=== PATIENT | male | born 1975 | race Caucasian/White ===

== ENCOUNTER 2017-08-20 05:42 | Emergency (ER) | payer BC, SELFPAY ==
[2017-08-20 05:48] VITALS: BP 147/91; PULSE 75; RESP 20; TEMP 36.6; O2SAT 98; BMI 31.8
--- NOTE | 2017-08-20 05:57 | CT_ITS ---
CT abdomen pelvis wo con COMPARISON: CT scan abdomen pelvis 08/30/2012 HISTORY: Left upper quadrant pain, nausea and vomiting TECHNIQUE: Multiaxial scans obtained from hemidiaphragms to the pelvic floor and were performed without IV or oral contrast. Sagittal and coronal reformats were evaluated as well. FINDINGS: The lower lung ye are clear. Cardiac size is normal. The liver spleen stomach and pancreas appear normal. Stomach is moderately distended with ingested food particles and the gallbladder is markedly contracted but appears to show multiple tiny calcified gallstones. The adrenal glands are normal. The kidneys are normal size and in no calculi and is no obstructive uropathy. Small bowel appears normal. The appendix is normal and retrocecal in location. There is moderate scattered stool in the ascending and transverse colon. The urinary bladder and prostate appear normal. IMPRESSION: 1. Markedly contracted gallbladder making evaluation difficult but I suspect small calcified gallstones, possibly follow-up ultrasound right upper quadrant would be helpful 2. Otherwise no acute abdominal or pelvic pathology identified, I basically agree the [facility] report but do not feel that there is hepatosplenomegaly
--- NOTE | 2017-08-20 05:57 | XR_ITS ---
XR chest portable COMPARISON: PA and lateral chest 07/06/2016 HISTORY: Chest pain TECHNIQUE: Portable upright chest FINDINGS: This a fairly good inspiration and the lung ye are clear of infiltrate. Apparently is been previous CABG with sternal wire sutures noted. Also there likely has been previous atrial appendage clamping. There is mild generalized cardio megaly with is no evidence of failure and is no pleural fluid. IMPRESSION: Stable mild cardio megaly, no acute chest pathology noted
[2017-08-20 06:08] LABS: Microscopic, Urine URINE MICROSCOPIC (MICROSCOPIC)
[2017-08-20 06:09] LABS: Appearance,Urine CLEAR (Clear); Bilirubin,Urine Negative (Negative); Blood, Urine Negative (Negative); Color,Urine YELLOW (Yellow); Glucose,Urine (UA) 3+ (Negative); Ketones,Urine Negative (Negative); Leukocyte Esterase,Urine Negative (Negative); Nitrate,Urine Negative (Negative); Protein,Urine 2+ (Negative); Specific Gravity, Urine >= 1.030 (1.005-1.030); Urobilinogen,Urine 0.2 EU/dl (0.2)
[2017-08-20 06:14] LABS: Basophils # 0.1 K/mm3 (0-0.2); Basophils % 0.7 % (0.1-2.0); Eosinophils # 0.2 K/mm3 (0.0-0.4); Eosinophils % 2.4 % (0.1-12.0); Hematocrit 51.1 % (42.0-52.0); Hemoglobin 17.5 g/dL (14.1-18.0); Lymphocytes # 2.1 K/mm3 (0.7-4.5); Lymphocytes % 21.1 K/mm3 (10-50); Mean Corpuscular HGB Conc 34.2 g/dL (31.8-35.4); Mean Corpuscular Hemoglobin 30.1 pg (27.0-31.2); Mean Platelet Volume 8.9 fl (7.4-10.4); Monocytes # 0.6 K/mm3 (0.1-1.0); Monocytes % 5.6 % (1.7-9.3); Neutrophils # 6.9 K/mm3 (1.8-7.8); Neutrophils % 70.2 % (37.0-80.0); Platelet Count 220 K/mm3 (142-424); Red Blood Count 5.81 M/mm3 (4.60-6.20); Red Cell Distribution Width 13.2 % (11.5-17.5); White Blood Count 9.8 K/mm3 (4.8-10.8)
[2017-08-20 06:29] LABS: Bacteria,Urine Trace /lpf; Hyaline Casts,Urine Occasional #/lpf (0); Mucus,Urine 1+ /lpf; Squamous Epithelial Cell,Urine Occasional #/hpf (0-5)
--- NOTE | 2017-08-20 06:33 | HMH.EDNVD ---
ED Disposition Clinical Impression: Gastroenteritis Chest pain Qualifiers: Chest pain type: other chest pain Qualified Code(s): R07.89 - Other chest pain Disposition: Home, Self-Care Condition on Discharge: Good Instructions: DI for Viral Gastroenteritis -- Adult, DI for Atypical Chest Pain Additional Instructions: Please drink plenty of fluids, take medications prescribed for nausea (all), may take [id number] Imodium as needed for diarrhea, follow-up with Dr. 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 Prescriptions: Ondansetron [Zofran 4mg ODT] 4 mg PO QIDP PRN #28 tab.rapdis PRN Reason: Nausea Referrals: Letitia Herr [Referring] - Forms: Work/School Release Time of Disposition: 09:38 - Critical Care Critical Care Time: No Attestation: On 08/20/17, the high probability of a clinically significant, sudden or life threatening deterioration of the following system(s) required my full and direct attention, intervention and personal management. The time I documented below is in addition to time spent performing reported procedures but includes the following listed in this critical care notation. Medical Decision Making - Medical Records Medical records reviewed: Yes: I reviewed the patient's medical records. - Markie Inquiry Pt receiving controlled substance: No Vital Signs: 08/20/17 05:48 08/20/17 06:52 08/20/17 10:01 Temperature 97.9 F 98.0 F Temperature Source Oral Oral Pulse Rate 74 Pulse Rate [Right Radial] 75 67 Respiratory Rate 20 14 20 Blood Pressure 110/63 Blood Pressure [Right Arm] 147/91 131/79 Blood Pressure Mean [Right Arm] 109 96 Blood Pressure Source Automatic Cuff Blood Pressure Source [Right Arm] Automatic Cuff Blood Pressure Position Sitting Blood Pressure Position [Right Arm] Supine 02 Sat by Pulse Oximetry 98 96 Oxygen Delivery Method Room Air Room Air - Lab Data Lab results reviewed: Yes: I reviewed the patient's lab results. Lab Results 08/20/17 05:45: Urine Color Yellow, Urine Appearance Clear, Urine pH 6.0, Ur Specific [place] >= 1.030, Urine Protein 2+, Urine Glucose (UA) 3+, Urine Ketones Negative, Urine Blood Negative, Urine Nitrate Negative, Urine Bilirubin Negative, Urine Urobilinogen 0.2, Ur Leukocyte Esterase Negative, Urine RBC 3-5, Urine WBC 3-5, Ur Squamous Epith Cells Occasional, Urine Bacteria Trace, Hyaline Casts Occasional, Urine Mucus 1+ 08/20/17 06:00: WBC 9.8, RBC 5.81, Hgb 17.5, Hct 51.1, MCV 88.0, MCH 30.1, MCHC 34.2, RDW 13.2, Plt Count 220, MPV 8.9, Neut % (Auto) 70.2, Lymph % (Auto) 21.1, [place] % (Auto) 5.6, Eos % (Auto) 2.4, Baso % (Auto) 0.7, Neut # (Auto) 6.9, Lymph # (Auto) 2.1, [place] # (Auto) 0.6, Eos # (Auto) 0.2, Baso # (Auto) 0.1 08/20/17 06:00: Sodium 137, Potassium 5.3 H, Chloride 101, Carbon Dioxide 29, Anion Gap 12.3, BUN 17, Creatinine 1.03, Estimated Creat Clear 139, Estimated GFR 79, Est GFR ( Amer) 95, Glucose 280 H, Calcium 9.3, Total Bilirubin 0.6, AST 33, ALT 83 H, Alkaline Phosphatase 107, Total Creatine Kinase 49, CK-MB (CK-2) 1.3, CK-MB (CK-2) Rel Index 2.7, Troponin I < 0.02, Total Protein 7.5, Albumin 4.0, Globulin 3.5 H, Albumin/Globulin Ratio 1.1, Amylase 99 08/20/17 06:00: Lipase 514 H 08/20/17 07:50: Troponin I < 0.02 Result diagrams: 08/20/17 06:00 08/20/17 06:00 Orders (Tests/Meds): ED MEDICATIONS Discontinued Medications Generic Name Dose Route Start Last Admin Trade Name Wild PRN Reason Stop Dose Admin Aspirin 324 mg 08/20/17 05:58 08/20/17 06:03 Aspirin 81mg Chewable Tablet PO 08/20/17 05:59 324 mg ONCE ONE Administration Diphenhydramine HCl 25 mg 08/20/17 07:58 08/20/17 08:03 Benadryl 25mg Capsule PO 08/20/17 07:59 25 mg ONCE ONE Administration Diphenoxylate HCl/Atropine 5 mg 08/20/17 06:34 08/20/17 06:57 Lomotil 2.5mg Tablet PO 08/20/17 06:35 Not Given ONCE ONE Sod
[2017-08-20 06:40] LABS: Alanine Aminotransferase 83 U/L (12-78); Albumin/Globulin Ratio 1.1 (1.1-1.8); Alkaline Phosphatase 107 U/L (46-116); Amylase 99 U/L (25-125); Anion Gap 12.3 mEq/L (5-15); Aspartate Amino Transferase 33 U/L (15-37); Bilirubin,Total 0.6 mg/dL (0.2-1.0); Blood Urea Nitrogen 17 mg/dL (7-18); CKMB Relative Index 2.7 U/L (0-4.0); Calcium 9.3 mg/dL (8.5-10.1); Carbon Dioxide 29 mmol/L (21.0-32.0); Chloride 101 mmol/L (98-107); Creatine Kinase 49 U/L (39-308); Creatine Kinase MB 1.3 mg/ml (0.0-3.6); Creatinine Clearance Estimated 139 mL/min (0-300); Creatinine,Serum 1.03 mg/dL (0.70-1.30); Estimated Glomerular Filt Rate 79 ml/min (>60); GFR (African American) 95 ML/MIN (>60); Globulin 3.5 gm/dl (1.3-3.2); Glucose 280 mg/dL (74-106); Potassium 5.3 mmoL/L (3.5-5.1); Sodium 137 mmol/L (136-145); Total Protein,Serum 7.5 gm/dL (6.4-8.2); Troponin I < 0.02 ng/ml (0.00-0.06)
[2017-08-20 06:42] LABS: Lipase 514 u/L (73-393)
[2017-08-20 06:52] VITALS: BP 131/79; PULSE 67; RESP 14; O2SAT 96
[2017-08-20 08:16] LABS: Troponin I < 0.02 ng/ml (0.00-0.06)
[2017-08-20 10:01] VITALS: BP 110/63; PULSE 74; RESP 20; TEMP 36.7; O2SAT 98
== END 2017-08-20 10:03 | disposition home or self-care (01) ==
PROVIDERS: Emergency Provider Emergency Medicine; Family Provider Internal Medicine Adolescent Medicine
DX: K52.9 Noninfective gastroenteritis and colitis, unspecified (principal); R07.89 Other chest pain; Z79.82 Long term (current) use of aspirin; E11.9 Type 2 diabetes mellitus without complications; Z87.891 Personal history of nicotine dependence; Z79.84 Long term (current) use of oral hypoglycemic drugs
CPT/HCPCS: 36415; 71045; 74176; 80053; 81001; 82150; 82550; 82553; 83690; 84484; 85025; 93005; 96365; 96366; 96375; 96376; 99283; J2405

== ENCOUNTER → 2018-01-22 14:00 | Outpatient (CLI) | payer BC, SELFPAY ==
--- NOTE | 2018-01-22 14:04 | CI_ITS ---
Cerebrovascular Exam Indications: TIA 434.91. Sudden vision loss 368.11. IMPRESSIONS 1. The bilateral vertebral arteries are patent with normal antegrade flow. 2. Study suggests less than 20% stenosis involving the right internal carotid artery and the left internal carotid artery. Carotid duplex study. Complete study and Doppler flow study including spectral analysis, color and kelsey scale imaging. Height: Height: 182.9cm. Height: 72in. Weight: Weight: 104.3kg. Weight: 229.5lb. Body mass index: BMI: 31.2kg/m^2. Body surface area: BSA: 2.33m^2. Location: Vascular laboratory. Patient status: Outpatient. Tables: Arterial flow: + +--------+--------+ Location V sys V ed + +--------+--------+ Right CCA - proximal 88cm/s 15.7cm/s + +--------+--------+ Right CCA - distal 66.8cm/s 19.6cm/s + +--------+--------+ Right ECA 112cm/s -------- + +--------+--------+ Right ICA - proximal 52.4cm/s 24.8cm/s + +--------+--------+ Right ICA - mid 65.1cm/s 27cm/s + +--------+--------+ Right ICA - distal 62.3cm/s 31.4cm/s + +--------+--------+ Right vertebral 27.5cm/s -------- + +--------+--------+ Left CCA - proximal 80.5cm/s 18.7cm/s + +--------+--------+ Left CCA - distal 88.8cm/s 22.1cm/s + +--------+--------+ Left ECA 77.7cm/s -------- + +--------+--------+ Left ICA - proximal 44.3cm/s 18.2cm/s + +--------+--------+ Left ICA - mid 50.6cm/s 19.9cm/s + +--------+--------+ Left ICA - distal 57.6cm/s 26.2cm/s + +--------+--------+ Left vertebral 35.3cm/s -------- + +--------+--------+ Velocity ratios: + + + + + + Right, V sys Right, V ed Left, V sys Left, V ed + + + + + + Max ICA/dist CCA 0.97 1.6 0.65 1.19 + + + + + + (Report amended ) Electronically signed by: Chu Vaca [id number]
--- NOTE | 2018-01-22 14:37 | MR_ITS ---
MR head/brain wo con HISTORY: Digital changes, blurriness of the left eye ITS.REASON: TIA ORDERING PHYSICIAN: Mayank Brooks MD PATIENT AGE: 42 years Comparison: None TECHNIQUE: Standard multiplanar multiecho sequences are performed without contrast. FINDINGS: No midline shift, mass effect, intracranial hemorrhage, or hydrocephalus. No evidence of acute infarction. There are a few T2 white matter hyperintensities noted one in the right rizvi radiata anteriorly and at least 4 in the subcortical region of the right parietal lobe. These do not demonstrate restricted diffusion. The cerebellopontine angles, cerebellum, and brainstem are unremarkable. Hippocampal gyri are unremarkable in the temporal horns are symmetric. The upper cervical cord has an unremarkable appearance. No mastoid effusion or sinus air-fluid level. The pituitary and optic chiasm are unremarkable. There is some increased T2 signal in the deep white matter of the occipital lobes bilaterally in the immediate periventricular region. There is also a T2 white matter hyperintensity in the left subinsular region. IMPRESSION: 1. Scattered T2 white matter hyperintensities as described above. These are nonspecific. Differential diagnosis would include ischemic gliotic change from microvascular disease, migraine headache, and demyelinating process/multiple sclerosis. The right rizvi radiata hyperintensity is oriented perpendicular to the plane of the lateral ventricles which may indicate developing Jha finger which may be seen in multiple sclerosis. There is also some white matter hyperintensity in the occipital horns which may be seen with MS as well. Neurology consult may be in order. 2. No evidence of acute infarction or other acute anomalies
--- NOTE | 2018-01-22 14:38 | MR_ITS ---
MR angio head wo con HISTORY: Visual disturbance, visual changes, blurred vision ITS.REASON: TIA ORDERING PHYSICIAN: Mayank Brooks MD PATIENT AGE: 42 years Comparison: None TECHNIQUE: 3-D [id number] images obtained without contrast. FINDINGS: No aneurysm, AVM, intracranial occlusive process, or other significant anomalies. Single shot MRV is unremarkable. There is persistent origin of the right posterior cerebral artery as a normal variant IMPRESSION: Negative MRA of the brain
== END ==
PROVIDERS: Family Provider Internal Medicine Adolescent Medicine; PCP Internal Medicine Adolescent Medicine; Visit Provider Internal Medicine Adolescent Medicine
DX: G45.9 Transient cerebral ischemic attack, unspecified (principal)
CPT/HCPCS: 70544; 70551; 93880

== ENCOUNTER → 2019-10-04 11:41 | Outpatient (CLI) | payer BC, SELFPAY ==
[2019-10-04 15:15] LABS: Hemoglobin A1C 6.6 % (4.0-6.0)
[2019-10-04 17:39] LABS: Chloride 101 mmol/L (98-107)
[2019-10-04 17:40] LABS: Potassium 5.1 mmoL/L (3.5-5.1); Sodium 140 mmol/L (136-145)
[2019-10-04 17:42] LABS: Alanine Aminotransferase 42 U/L (12-78); Albumin Level 4.8 g/dl (3.5-5.0); Albumin/Globulin Ratio 1.9 (1.1-1.8); Alkaline Phosphatase 64 U/L (38-126); Anion Gap 17.1 mEq/L (5-15); Aspartate Amino Transferase 34 U/L (17-59); Bilirubin,Total 1.5 mg/dl (0.2-1.3); Blood Urea Nitrogen 18 mg/dl (9-20); Carbon Dioxide 27 mmol/L (22.0-30.0); Estimated Glomerular Filt Rate 104 ml/min (>60); GFR (African American) 126 ML/MIN (>60); Globulin 2.5 g/dL (1.3-3.2); Total Protein,Serum 7.3 g/dl (6.3-8.2)
[2019-10-04 17:43] LABS: Calcium 10.3 mg/dl (8.4-10.2); Chol/HDL Ratio 3.2 (1-3.5); Cholesterol 130 mg/dl (140-200); Glucose 131 mg/dl (74-100); HDL Cholesterol 41 mg/dl (40-60); Triglycerides 214 mg/dl (30-150); VLDL Cholesterol 43 mg/dL (0-40)
[2019-10-04 17:54] LABS: Direct LDL Cholesterol 81.77 mg/dL (100-129)
== END ==
PROVIDERS: Visit Provider Internal Medicine Adolescent Medicine
DX: E11.9 Type 2 diabetes mellitus without complications (principal)
CPT/HCPCS: 36415; 80053; 80061; 83036

== ENCOUNTER 2019-11-10 09:00 | Outpatient (RCR) | payer BC, SELFPAY | END 2019-11-20 15:30 | disposition home or self-care (01) | LOC: PT.CARL 09:00 | PROVIDERS: PCP Internal Medicine Adolescent Medicine; Visit Provider Hospitalist | DX: M54.5 Low back pain (principal); M54.17 Radiculopathy, lumbosacral region; M48.061 Spinal stenosis, lumbar region without neurogenic claudication | CPT/HCPCS: 97010; 97012; 97014; 97110; 97140; 97163; G0283 ==

== ENCOUNTER → 2020-01-13 15:48 | Outpatient (CLI) | payer BC, SELFPAY ==
[2020-01-13 17:09] LABS: Hemoglobin A1C 7.7 % (4.0-6.0)
[2020-01-13 17:24] LABS: Alanine Aminotransferase 59 U/L (12-78); Albumin Level 4.9 g/dl (3.5-5.0); Albumin/Globulin Ratio 1.8 (1.1-1.8); Alkaline Phosphatase 107 U/L (38-126); Aspartate Amino Transferase 46 U/L (17-59); Bilirubin,Total 1.2 mg/dl (0.2-1.3); Blood Urea Nitrogen 16 mg/dl (9-20); Calcium 10.2 mg/dl (8.4-10.2); Carbon Dioxide 28 mmol/L (22.0-30.0); Chloride 99 mmol/L (98-107); Estimated Glomerular Filt Rate 121 ml/min (>60); GFR (African American) 147 ML/MIN (>60); Globulin 2.8 g/dL (1.3-3.2); Glucose 144 mg/dl (74-100); Magnesium 1.9 mg/dl (1.6-2.3); Sodium 141 mmol/L (136-145); Total Protein,Serum 7.7 g/dl (6.3-8.2)
== END ==
PROVIDERS: Visit Provider Internal Medicine Adolescent Medicine
DX: E11.9 Type 2 diabetes mellitus without complications (principal); E61.2 Magnesium deficiency; I10 Essential (primary) hypertension; Z79.84 Long term (current) use of oral hypoglycemic drugs
CPT/HCPCS: 36415; 80053; 83036; 83735

== ENCOUNTER 2020-07-19 09:20 | Emergency (ER) | payer BC, SELFPAY ==
[2020-07-19 09:21] VITALS: BP 152/111; PULSE 132; RESP 20; TEMP 37.3; O2SAT 95; BMI 31.1
--- NOTE | 2020-07-19 09:23 | HMH.EDGENADL ---
ED Disposition Clinical Impression: COVID-19 Disposition: Home, Self-Care Condition on Discharge: Good Referrals: PCP,No [Primary Care Provider] - 3 days Time of Disposition: 14:19 - Critical Care Critical Care Time: No Attestation: On , the high probability of a clinically significant, sudden or life threatening deterioration of the following system(s) required my full and direct attention, intervention and personal management. The time I documented below is in addition to time spent performing reported procedures but includes the following listed in this critical care notation. Medical Decision Making - Medical Records Medical records reviewed: Yes: I reviewed the patient's medical records. - Markie Inquiry Pt receiving controlled substance: No Vital Signs: 07/19/20 09:21 07/19/20 09:51 07/19/20 11:21 Temperature 99.1 F Temperature Source Oral Pulse Rate [Left Radial] 132 H 123 H 116 H Respiratory Rate 20 Blood Pressure [Right Arm] 152/111 H 141/95 H 151/98 H Blood Pressure Mean [Right Arm] 124 110 115 Blood Pressure Source [Right Arm] Automatic Cuff Automatic Cuff Automatic Cuff Blood Pressure Position [Right Arm] Sitting Supine Supine 02 Sat by Pulse Oximetry 95 90 L 98 Oxygen Delivery Method Room Air Room Air Room Air 07/19/20 12:30 07/19/20 13:30 Temperature Temperature Source Pulse Rate [Left Radial] 109 H 111 H Respiratory Rate 18 Blood Pressure [Right Arm] 136/96 H 127/92 H Blood Pressure Mean [Right Arm] 109 103 Blood Pressure Source [Right Arm] Blood Pressure Position [Right Arm] Sitting Sitting 02 Sat by Pulse Oximetry 94 L 93 L Oxygen Delivery Method Room Air Room Air - Lab Data Lab results reviewed: Yes: I reviewed the patient's lab results. Lab Results 07/19/20 09:28: WBC 4.3 L, RBC 6.35 H, Hgb 19.1 H*, Hct 56.0 H, MCV 88.1, MCH 30.1, MCHC 34.1, RDW 13.6, Plt Count 130 L, MPV 9.1, Neut % (Auto) 58.7, Lymph % (Auto) 26.4, [place] % (Auto) 10.3 H, Eos % (Auto) 0.4, Baso % (Auto) 4.1 H, Neut # (Auto) 2.5, Lymph # (Auto) 1.1, [place] # (Auto) 0.4, Eos # (Auto) 0.0, Baso # (Auto) 0.2 07/19/20 09:28: Sodium 138, Potassium 4.0, Chloride 104, Carbon Dioxide 25, Anion Gap 13.0, BUN 15, Creatinine 0.80, Estimated Creat Clear 170, Estimated GFR 104, Est GFR ( Amer) 126, Glucose 203 H, Calcium 9.9, Total Bilirubin 1.2, AST 56, ALT 73, Alkaline Phosphatase 80, Total Protein 8.4 H, Albumin 5.0, Globulin 3.4 H, Albumin/Globulin Ratio 1.5 07/19/20 09:28: Influenza Type A Ag Negative, Influenza Type B Ag Negative 07/19/20 09:28: Group A Strep Rapid Negative Result diagrams: 07/19/20 09:28 07/19/20 09:28 Orders (Tests/Meds): ED MEDICATIONS Discontinued Medications Generic Name Dose Route Start Last Admin Trade Name Freq PRN Reason Stop Dose Admin Acetaminophen 1,000 mg 07/19/20 11:31 07/19/20 11:34 Acetaminophen 500mg Tab PO 07/19/20 11:32 1,000 mg ONCE ONE Administration Sodium Chloride 1,000 mls @ 999 mls/hr 07/19/20 09:30 07/19/20 09:50 Sod Chlor 0.9% 1000ml Bag IV 07/19/20 10:30 999 mls/hr .Q1H1M MIGUEL Administration Sodium Chloride 1,000 mls @ 999 mls/hr 07/19/20 11:15 07/19/20 11:11 Sod Chlor 0.9% 1000ml Bag IV 07/19/20 12:15 999 mls/hr .Q1H1M MIGUEL Administration Ibuprofen 600 mg 07/19/20 11:31 07/19/20 11:34 Ibuprofen 600 Mg Tablet PO 07/19/20 11:32 600 mg ONCE ONE Administration Iopamidol 75 ml 07/19/20 13:06 07/19/20 13:07 Iopamidol-370 (76%);100ml Bottle IV 07/19/20 13:07 75 ml ONCE ONE Administration Ondansetron HCl 4 mg 07/19/20 10:30 07/19/20 10:38 Ondansetron 4mg/2ml Vial IV 07/19/20 10:31 4 mg ONCE ONE Administration Sodium Chloride 10 ml 07/19/20 13:06 07/19/20 13:07 Sodium Chloride 0.9% 10ml Syr (Rad Only) IV 07/19/20 13:07 10 ml ONCE ONE Administration Sodium Chloride 50 ml 07/19/20 13:06 0.9 % Sodium Chloride 50 Ml Vial IV 07/19/20 13:07 ONCE ONE ORDERS
--- NOTE | 2020-07-19 09:26 | XR_ITS ---
PROCEDURE: XR CHEST PORTABLE CLINICAL HISTORY: soa Shortness of air, full PP, are COMPARISON: CT CTAC CTA-CHEST from 01/10/2016 CR CXR CHEST(2 VIEWS-NOT PORTABLE) from 07/24/2016 CR CXR1VP XR chest portable from 08/20/2017 FINDINGS: Patient had a prior median sternotomy a atrial appendix clip and loop recorder placement. Additional cerclage wires and additional hardware across the sternum. There are low lung volumes. There is crowding at the vascular markings secondary to low lung volumes. Cardiomegaly is redemonstrated. No visible pleural effusions. There are degenerative changes in the skeleton. IMPRESSION: . Decreased inspiration, low lung volumes, postsurgical findings. Dictated by: Lynn Stoddard 07/19/2020 11:11 Lynn Stoddard in [facility] 07/19/2020 11:11
[2020-07-19 09:42] LABS: Basophils # 0.2 K/mm3 (0-0.2); Basophils % 4.1 % (0.1-2.0); Eosinophils % 0.4 % (0.1-12.0); Lymphocytes # 1.1 K/mm3 (0.7-4.5); Lymphocytes % 26.4 % (10-50); Mean Corpuscular HGB Conc 34.1 g/dL (31.8-35.4); Mean Corpuscular Hemoglobin 30.1 pg (27.0-31.2); Mean Corpuscular Volume 88.1 fl (80-94); Mean Platelet Volume 9.1 fl (7.4-10.4); Monocytes # 0.4 K/mm3 (0.1-1.0); Monocytes % 10.3 % (1.7-9.3); Neutrophils # 2.5 K/mm3 (1.8-7.8); Neutrophils % 58.7 % (37.0-80.0); Platelet Count 130 K/mm3 (142-424); Red Blood Count 6.35 M/mm3 (4.60-6.20); Red Cell Distribution Width 13.6 % (11.5-17.5); White Blood Count 4.3 K/mm3 (4.8-10.8)
[2020-07-19 09:47] LABS: Hemoglobin 19.1 g/dL (14.1-18.0)
[2020-07-19 09:49] LABS: Chloride 104 mmol/L (98-107); Sodium 138 mmol/L (136-145)
[2020-07-19 09:51] VITALS: BP 141/95; PULSE 123; O2SAT 90
[2020-07-19 09:51] LABS: Alanine Aminotransferase 73 U/L (12-78); Aspartate Amino Transferase 56 U/L (17-59); Blood Urea Nitrogen 15 mg/dl (9-20); Creatinine Clearance Estimated 170 mL/min (50-200); Estimated Glomerular Filt Rate 104 ml/min (>60); GFR (African American) 126 ML/MIN (>60)
[2020-07-19 09:52] LABS: Albumin/Globulin Ratio 1.5 (1.1-1.8); Alkaline Phosphatase 80 U/L (38-126); Bilirubin,Total 1.2 mg/dl (0.2-1.3); Calcium 9.9 mg/dl (8.4-10.2); Carbon Dioxide 25 mmol/L (22.0-30.0); Globulin 3.4 g/dL (1.3-3.2); Glucose 203 mg/dl (74-100); Total Protein,Serum 8.4 g/dl (6.3-8.2)
[2020-07-19 10:15] LABS: Strep Scrn Group A (Rapid) Negative (Negative)
[2020-07-19 11:21] VITALS: BP 151/98; PULSE 116; O2SAT 98
--- NOTE | 2020-07-19 12:07 | CT_ITS ---
PROCEDURE: CT ANGIO CHEST CLINCIAL INDICATION: tachycardia, pain COMPARISON: CT CTAC CTA-CHEST from 01/10/2016 CR XR CHEST PORTABLE from 07/19/2020 TECHNIQUE: IV Contrast: 70ML Isovue 370 Axial images obtained with sagittal and coronal reformats. All CT scans at the facility use one or more dose reduction, viz: automated exposure control, ma/kV adjustment per patient size (including targeted exams where dose is matched to indication, i.e. head), or iterative reconstruction technique. FINDINGS: HEART AND MEDIASTINAL STRUCTURES: Patient the and CABG procedure. Patient has an implanted loop recorder and additional surgical hardware possibly an atrial appendage closure device. There is severe atherosclerotic calcification throughout the coronary arteries. There are multiple calcified mediastinal and hilar lymph nodes. Mediastinal structures are otherwise normal. There are no pleural effusions. LUNGS AND PLEURAL SPACES: There are multiple small patchy ground-glass infiltrates throughout the lungs right greater than left consistent with pneumonia, possibility of COVID pneumonia, correlate clinically. Vasculature: There is no pulmonary embolus. There is no aortic dissection. BONY STRUCTURES: No acute bony abnormalities apparent. UPPER ABDOMEN: Unremarkable. ADDITIONAL FINDINGS: No other significant abnormalities. IMPRESSION: Multiple small patchy ground-glass densities assisted with infiltrate, including COVID Pneumonia, correlate clinically. Dictated by: Lynn Stoddard 07/19/2020 14:07 Lynn Stoddard in [facility] 07/19/2020 14:07
[2020-07-19 12:30] VITALS: BP 136/96; PULSE 109; O2SAT 94
--- NOTE | 2020-07-19 12:55 | PC.NURSE ---
pt going to ct
[2020-07-19 13:30] VITALS: BP 127/92; PULSE 111; RESP 18; O2SAT 93
[2020-07-19 14:52] VITALS: BP 134/95; PULSE 113; RESP 20; TEMP 37.3; O2SAT 95
== END 2020-07-19 15:05 | disposition home or self-care (01) ==
PROVIDERS: Emergency Provider Family Medicine
DX: U07.1 COVID-19 (principal); E11.65 Type 2 diabetes mellitus with hyperglycemia; E78.5 Hyperlipidemia, unspecified; I10 Essential (primary) hypertension; Z79.899 Other long term (current) drug therapy
CPT/HCPCS: 71045; 71275; 80053; 85025; 87275; 87276; 87430; 96365; 96367; 96375; 99284; J2405; Q9967; U0003

== ENCOUNTER 2020-07-27 07:33 | Outpatient (CLI) | payer BC, SELFPAY | END 2020-07-27 10:00 | disposition home or self-care (01) | PROVIDERS: PCP Internal Medicine Adolescent Medicine; Visit Provider Internal Medicine Adolescent Medicine | DX: U07.1 COVID-19 (principal) | CPT/HCPCS: 96365 ==

== ENCOUNTER 2020-08-01 12:13 | Observation (INO) | payer BC, SELFPAY ==
[2020-08-01] VITALS (10 sets, daily range): BP systolic 118–168; BP diastolic 69–95; PULSE 74–90; RESP 16–20; TEMP 36.4–37.1; O2SAT 94–98; BMI 27.7; BMI 27.8; BMI 31.1
--- NOTE | 2020-08-01 12:18 | CT_ITS ---
PROCEDURE: CT ABDOMEN PELVIS WO CON CLINICAL INDICATION: poss kidney stone Right flank pain COMPARISON: CT ABDPELWO CT abdomen pelvis wo con from 08/20/2017 TECHNIQUE: Axial images obtained with sagittal and coronal reformats. All CT scans at the facility use one or more dose reduction, viz: automated exposure control, ma/kV adjustment per patient size (including targeted exams where dose is matched to indication, i.e. head), or iterative reconstruction technique. FINDINGS: LOWER THORAX: Multifocal small ground-glass areas of infiltrate are noted and may be seen with Covid19 pneumonia. There has been a prior CABG. Left sided loop recorder device is present. Coronary artery calcifications and/or stents noted ABDOMEN & PELVIS: There are gallstones present. The liver has an unremarkable appearance. There is splenomegaly at 15.5 cm. The adrenal glands and pancreas are unremarkable. There are some small peripancreatic lymph nodes measuring up to 1.6 cm not significantly changed. There are few small nodes in the periaortic region. There is mild right hydronephrosis and hydroureter secondary to a 4 mm stone in the distal right ureter just proximal to the UVJ. There is a 2 mm stone in the lower pole of the right kidney. There is minimal stranding of the right perinephric renal fat. No evidence of appendicitis or diverticulitis. No acute bony findings. Sclerotic lesion is present in the intertrochanteric region of the left femoral neck and may represent a bone island not significantly changed. IMPRESSION: 1. 4 mm right distal ureteral stone causing mild right-sided hydronephrosis and hydroureter. 2. Multifocal ground-glass infiltrates in both lower lobes suspicious for Covid19 pneumonia. Commonly reported imaging features of Covid19 pneumonia are present. Other processes such is influenza pneumonia and organizing pneumonia, drug toxicity, connective tissue disease, and pulmonary hemorrhage can cause a similar imaging pattern. 3. Cholelithiasis 4. Splenomegaly Dictated by: Chu Vaca MD 08/02/2020 06:35 Chu Vaca MD in [facility] 08/02/2020 06:35
--- NOTE | 2020-08-01 12:18 | HMH.EDGENADL ---
ED Disposition Clinical Impression: Right ureteral calculus Disposition: Admitted as Observation Condition on Discharge: Fair - Critical Care Critical Care Time: No Attestation: On 08/01/20, the high probability of a clinically significant, sudden or life threatening deterioration of the following system(s) required my full and direct attention, intervention and personal management. The time I documented below is in addition to time spent performing reported procedures but includes the following listed in this critical care notation. Medical Decision Making - Medical Records Medical records reviewed: Yes: I reviewed the patient's medical records. MR Comment: Diagnosed with Covid on 07/19/2020. Treated with monoclonal antibody infusion on 07/27/2020. - Markie Inquiry Pt receiving controlled substance: Yes Markie was queried for this patient: Yes Risks and benefits of using a controlled substance: were not discussed with pt by me Vital Signs: 08/01/20 12:14 08/01/20 12:43 08/01/20 12:46 Temperature 98.7 F Temperature Source Oral Pulse Rate [Radial] 88 74 78 Respiratory Rate 20 18 20 Blood Pressure [Right Arm] 166/80 H 131/84 134/84 Blood Pressure Mean [Right Arm] 108 99 100 Blood Pressure Position [Right Arm] Sitting Sitting 02 Sat by Pulse Oximetry 98 98 94 L Oxygen Delivery Method Room Air Room Air 08/01/20 13:51 08/01/20 14:07 08/01/20 14:49 Temperature Temperature Source Pulse Rate [Radial] 77 86 85 Respiratory Rate 18 18 20 Blood Pressure [Right Arm] 132/76 129/87 122/95 H Blood Pressure Mean [Right Arm] 94 101 104 Blood Pressure Position [Right Arm] 02 Sat by Pulse Oximetry 94 L 97 96 Oxygen Delivery Method 08/01/20 15:30 08/01/20 16:16 Temperature Temperature Source Pulse Rate [Radial] 89 86 Respiratory Rate 16 18 Blood Pressure [Right Arm] 142/93 H 118/69 Blood Pressure Mean [Right Arm] 109 85 Blood Pressure Position [Right Arm] Sitting 02 Sat by Pulse Oximetry 98 97 Oxygen Delivery Method Room Air - Lab Data Lab results reviewed: Yes: I reviewed the patient's lab results. Lab Results 08/01/20 12:20: Urine Color Dk yellow, Urine Appearance Clear, Urine pH 6.0, Ur Specific [place] >= 1.030, Urine Protein 2+, Urine Glucose (UA) Negative, Urine Ketones Negative, Urine Blood 3+, Urine Nitrate Negative, Urine Bilirubin Negative, Urine Urobilinogen 1.0, Ur Leukocyte Esterase Negative, Urine RBC 50-100, Urine WBC Occasional, Ur Squamous Epith Cells 5-10, Urine Bacteria None 08/01/20 12:20: WBC 10.8, RBC 5.80, Hgb 16.9, Hct 49.4, MCV 85.1, MCH 29.2, MCHC 34.3, RDW 13.0, Plt Count 228, MPV 8.9, Neut % (Auto) 76.8, Lymph % (Auto) 14.9, [place] % (Auto) 6.8, Eos % (Auto) 1.0, Baso % (Auto) 0.4, Neut # (Auto) 8.3 H, Lymph # (Auto) 1.6, [place] # (Auto) 0.7, Eos # (Auto) 0.1, Baso # (Auto) 0.0 08/01/20 12:20: Sodium 139, Potassium 4.2, Chloride 104, Carbon Dioxide 27, Anion Gap 12.2, BUN 9, Creatinine 0.80, Estimated Creat Clear 148, Estimated GFR 104, Est GFR ( Amer) 126, Glucose 173 H, Calcium 9.9, Total Bilirubin 1.2, AST 29, ALT 38, Alkaline Phosphatase 95, Total Protein 7.6, Albumin 4.3, Globulin 3.3 H, Albumin/Globulin Ratio 1.3 Result diagrams: 08/01/20 12:20 08/01/20 12:20 Orders (Tests/Meds): ED MEDICATIONS Generic Name Dose Route Start Last Admin Trade Name Sumanthq PRN Reason Stop Dose Admin Acetaminophen 650 mg 08/01/20 16:44 Acetaminophen 325mg Tab PO 08/31/20 16:43 Q4HP PRN As Needed for Fever or Pain Aspirin 81 mg 08/02/20 09:00 Aspirin 81mg Chewable Tablet PO 09/01/20 08:59 DAILY MIGUEL Celecoxib 100 mg 08/01/20 21:00 Celecoxib 100mg Capsule PO 08/31/20 20:59 BID MIGUEL Hydromorphone HCl 1 mg 08/01/20 16:44 Hydromorphone 2mg/Ml Syringe IV 08/31/20 16:43 Q4HP PRN Severe Pain Sodium Chloride 1,000 mls @ 150 mls/hr 08/01/20 16:44 Sod Chlor 0.9% 1000ml Bag IV 08/31/20 14:14 .Q6H40M MIGUEL Insulin
[2020-08-01 12:27] LABS: Microscopic, Urine URINE MICROSCOPIC (MICROSCOPIC)
[2020-08-01 12:31] LABS: Appearance,Urine CLEAR (Clear); Basophils % 0.4 % (0.1-2.0); Blood, Urine 3+ (Negative); Color,Urine DK YELLOW (Yellow); Eosinophils # 0.1 K/mm3 (0.0-0.4); Glucose,Urine (UA) Negative (Negative); Hematocrit 49.4 % (42.0-52.0); Hemoglobin 16.9 g/dL (14.1-18.0); Ketones,Urine Negative (Negative); Leukocyte Esterase,Urine Negative (Negative); Lymphocytes # 1.6 K/mm3 (0.7-4.5); Lymphocytes % 14.9 % (10-50); Mean Corpuscular HGB Conc 34.3 g/dL (31.8-35.4); Mean Corpuscular Hemoglobin 29.2 pg (27.0-31.2); Mean Corpuscular Volume 85.1 fl (80-94); Mean Platelet Volume 8.9 fl (7.4-10.4); Monocytes # 0.7 K/mm3 (0.1-1.0); Monocytes % 6.8 % (1.7-9.3); Neutrophils # 8.3 K/mm3 (1.8-7.8); Neutrophils % 76.8 % (37.0-80.0); Nitrate,Urine Negative (Negative); Platelet Count 228 K/mm3 (142-424); Protein,Urine 2+ (Negative); Specific Gravity, Urine >= 1.030 (1.005-1.030); White Blood Count 10.8 K/mm3 (4.8-10.8)
[2020-08-01 12:35] LABS: Bilirubin,Urine Negative (Negative); Chloride 104 mmol/L (98-107); Potassium 4.2 mmoL/L (3.5-5.1); Sodium 139 mmol/L (136-145)
[2020-08-01 12:38] LABS: Alanine Aminotransferase 38 U/L (12-78); Albumin Level 4.3 g/dl (3.5-5.0); Albumin/Globulin Ratio 1.3 (1.1-1.8); Alkaline Phosphatase 95 U/L (38-126); Anion Gap 12.2 mEq/L (5-15); Aspartate Amino Transferase 29 U/L (17-59); Bilirubin,Total 1.2 mg/dl (0.2-1.3); Blood Urea Nitrogen 9 mg/dl (9-20); Carbon Dioxide 27 mmol/L (22.0-30.0); Creatinine Clearance Estimated 148 mL/min (50-200); Estimated Glomerular Filt Rate 104 ml/min (>60); GFR (African American) 126 ML/MIN (>60); Globulin 3.3 g/dL (1.3-3.2); Total Protein,Serum 7.6 g/dl (6.3-8.2)
[2020-08-01 12:39] LABS: Calcium 9.9 mg/dl (8.4-10.2); Glucose 173 mg/dl (74-100); RBC,Urine 50-100 #/hpf (0-3); WBC,Urine Occasional #/hpf (0-3)
--- NOTE | 2020-08-01 13:41 | PC.NURSE ---
Dr Mallorie Meier
--- NOTE | 2020-08-01 13:41 | PC.NURSE ---
Dr. Mallorie munoz
--- NOTE | 2020-08-01 13:59 | PC.NURSE ---
Dr Jeffery munoz
--- NOTE | 2020-08-01 14:01 | PC.NURSE ---
MD on with DR Gil
--- NOTE | 2020-08-01 14:05 | PC.NURSE ---
Dr. Mallorie munoz
--- NOTE | 2020-08-01 14:06 | PC.NURSE ---
speaking with Dr. Nobles
--- NOTE | 2020-08-01 14:07 | PC.NURSE ---
on with DR Nobles
--- NOTE | 2020-08-01 15:00 | PC.NURSE ---
PT AND FAMILY UPDATED ON PLAN OF CARE
--- NOTE | 2020-08-01 16:00 | PC.NURSE ---
PT UPDATED ON PLAN OF CARE. PT OFFERED DINNER TRAY, REFUSED STATED FAMILY BROUGHT HIM FOOD EARLIER
--- NOTE | 2020-08-01 16:44 | PC.NURSE ---
REPORT CALLED TO FLOOR
--- NOTE | 2020-08-01 18:59 | PC.NURSE ---
Patient is alert and oriented. Pleasant. Patient states that his pain is currently a 4 but feels that a 4 is tolerable and doesnt want any medication for pain currently. Advised patient to notify staff when the pain becomes worse. GI: Patient refused the tray brought from dietary but did eat two bowls of cereal. No c/o n/v/d. FSBG was 229 requiring 5 units of insulin. : Patient voids in toilet, given a strainer to monitor for kidney stones. Educated patient on its usage and to notify staff with any stones. Skin is c/d/i Patient is able to ambulate independently. Patient is on room air sating 98%. Will continue to monitor.
[2020-08-02] VITALS: BP 150/90; PULSE 82; O2SAT 96
[2020-08-02 00:18] LABS: POC Glucose,Bedside 229 (70-110)
[2020-08-02 00:18] LABS: POC Glucose,Bedside 206 (70-110)
--- NOTE | 2020-08-02 00:43 | PC.NURSE ---
Pt is A&Ox4 and has ambulated independently and tolerated well. Pt has c/o pain to r flank and requested pain medication, Dilaudid given per MAR and was effective. Pt did also c/o mild itchiness and MD Nobles gave new order for Benadryl PO which also was effective per pt.
--- NOTE | 2020-08-02 02:44 | PC.NURSE ---
Patient got up to use bathroom by self; steady gait. Urine was not measured but patient stated he did strain urine (strainer beside toilet in room). Patient now in pain after urinating; pain med given per AUG.
[2020-08-02 04:00] VITALS: BP 136/79; PULSE 64; RESP 16; TEMP 36.8; O2SAT 97
[2020-08-02 06:17] LABS: POC Glucose,Bedside 148 (70-110)
--- NOTE | 2020-08-02 06:35 | PC.NURSE ---
Patient went to bathroom and passed stone in strainer while urinating. Stone sent to lab. Patient states he is in pain again after using bathroom and pain med given per AUG. Patient states it is now more of a spasm type pain.
[2020-08-02 06:38] VITALS: BMI 32.2
[2020-08-02 06:43] LABS: Basophils % 0.6 % (0.1-2.0); Eosinophils # 0.1 K/mm3 (0.0-0.4); Eosinophils % 1.6 % (0.1-12.0); Hematocrit 45.2 % (42.0-52.0); Hemoglobin 15.4 g/dL (14.1-18.0); Lymphocytes # 1.5 K/mm3 (0.7-4.5); Lymphocytes % 25.7 % (10-50); Mean Corpuscular HGB Conc 34.1 g/dL (31.8-35.4); Mean Corpuscular Hemoglobin 29.4 pg (27.0-31.2); Mean Corpuscular Volume 86.2 fl (80-94); Mean Platelet Volume 8.7 fl (7.4-10.4); Monocytes # 0.4 K/mm3 (0.1-1.0); Monocytes % 7.3 % (1.7-9.3); Neutrophils # 3.9 K/mm3 (1.8-7.8); Neutrophils % 64.8 % (37.0-80.0); Platelet Count 197 K/mm3 (142-424); Red Blood Count 5.24 M/mm3 (4.60-6.20); Red Cell Distribution Width 12.9 % (11.5-17.5)
[2020-08-02 06:47] LABS: Chloride 107 mmol/L (98-107); Potassium 4.4 mmoL/L (3.5-5.1); Sodium 141 mmol/L (136-145)
[2020-08-02 06:50] LABS: Blood Urea Nitrogen 7 mg/dl (9-20); Carbon Dioxide 28 mmol/L (22.0-30.0); Creatinine Clearance Estimated 227 mL/min (50-200); Estimated Glomerular Filt Rate 145 ml/min (>60); GFR (African American) 176 ML/MIN (>60)
[2020-08-02 06:51] LABS: Calcium 9.1 mg/dl (8.4-10.2); Glucose 146 mg/dl (74-100)
--- NOTE | 2020-08-02 07:22 | P.CONPHA_ITS ---
[facility] Pharmacy VTE Monitoring - Patient Demographics Admission date: 08/01/20 Report Date: 08/02/20 Time: 07:22 Allergies/Adverse Reactions: Patient Allergies aloe vera [ALOE VERA] Allergy (Unknown, Verified 08/20/17 05:55) Height: 1.8 m Weight: 104.496 kg Patient Problems: Current Active Problems Right ureteral calculus (Acute) - VTE Risk Labs: VTE Related Lab Results Hgb 15.4 g/dL (14.1-18.0) 08/02/20 06:15 Hct 45.2 % (42.0-52.0) 08/02/20 06:15 Plt Count 197 K/mm3 (142-424) 08/02/20 06:15 BUN 7 mg/dl (9-20) L 08/02/20 06:15 Creatinine 0.60 mg/dl (0.66-1.25) L D 08/02/20 06:15 Estimated Creat Clear 227 mL/min (50-200) 08/02/20 06:15 Was VTE Risk Assessment Performed: Yes VTE Score: 1 VTE Risk Level: Very Low Risk - Prophylaxis VTE Prophylaxis Ordered?: Yes Types of VTE Prophylaxis: TEDS Knee High Location of Applied Device: Bilateral Lower Extremeties
[2020-08-02 08:00] VITALS: BP 143/87; PULSE 87; RESP 19; TEMP 36.7; O2SAT 98
--- NOTE | 2020-08-02 08:33 | HMH.HPDC ---
General - General Admission date:: 08/01/20 Discharge date: 08/02/20 *Admission Date: 08/01/20 *Chief complaint: Right flank pain *History of present illness: 44-year-old white male with multiple medical problems including diabetes, cardiovascular disease and recent diagnosis of COVID-19 pneumonia who had been improving after antibiotic infusion and had been cleared from quarantine by the health department and respiratory status had been improving who had the sudden onset of right-sided flank pain, hematuria, came to the emergency department last night, CT scan showed 4 mm obstructing mid ureteral stone in the right side with hydronephrosis, admitted to hospital for pain control and IV fluids. [facility] History I have reviewed the patient's past medical history: Yes Medical History: Reports:: Arrhythmia, Coronary Artery Disease, Diabetes Mellitus Type 2, Hyperlipidemia, Hypertension, Myocardial Infarction, Palpitations Denies:: Cancer, MRSA *Have you ever received a pneumonia vaccine?: No *Have you received a flu vaccine this season?: Yes Other Surgeries: Yes: Cardiac Surgery, Ureter Stent Amputation: No Fractures: No - *Social History Last grade of school completed: Advanced degree Smoking Status: Never smoker Alcohol Intake: current Alcohol Intake Frequency:: holidays/special occasions only *Occupational Status:: employed Housing: house Household Members: spouse *Travel in the last 8 weeks: None Family Hx:: No significant family history Review of Systems - Review of Systems Review of systems:: pertinent systems reviewed and negative unless documented below Exam Vital signs and Labs for Last 24 Hours: Temp Pulse Resp BP Pulse Ox 98.1 F 87 19 143/87 H 98 08/02/20 08:00 08/02/20 08:00 08/02/20 08:00 08/02/20 08:00 08/02/20 08:00 Laboratory Results - last 24 hr 08/01/20 12:20: Urine Color Dk yellow, Urine Appearance Clear, Urine pH 6.0, Ur Specific [place] >= 1.030, Urine Protein 2+, Urine Glucose (UA) Negative, Urine Ketones Negative, Urine Blood 3+, Urine Nitrate Negative, Urine Bilirubin Negative, Urine Urobilinogen 1.0, Ur Leukocyte Esterase Negative, Urine RBC 50-100, Urine WBC Occasional, Ur Squamous Epith Cells 5-10, Urine Bacteria None 08/01/20 12:20: WBC 10.8, RBC 5.80, Hgb 16.9, Hct 49.4, MCV 85.1, MCH 29.2, MCHC 34.3, RDW 13.0, Plt Count 228, MPV 8.9, Neut % (Auto) 76.8, Lymph % (Auto) 14.9, [place] % (Auto) 6.8, Eos % (Auto) 1.0, Baso % (Auto) 0.4, Neut # (Auto) 8.3 H, Lymph # (Auto) 1.6, [place] # (Auto) 0.7, Eos # (Auto) 0.1, Baso # (Auto) 0.0 08/01/20 12:20: Sodium 139, Potassium 4.2, Chloride 104, Carbon Dioxide 27, Anion Gap 12.2, BUN 9, Creatinine 0.80, Estimated Creat Clear 148, Estimated GFR 104, Est GFR ( Amer) 126, Glucose 173 H, Calcium 9.9, Total Bilirubin 1.2, AST 29, ALT 38, Alkaline Phosphatase 95, Total Protein 7.6, Albumin 4.3, Globulin 3.3 H, Albumin/Globulin Ratio 1.3 08/01/20 17:50: POC Glucose 229 H 08/01/20 21:13: POC Glucose 206 H 08/02/20 06:09: POC Glucose 148 H 08/02/20 06:15: WBC 6.0 D, RBC 5.24, Hgb 15.4, Hct 45.2, MCV 86.2, MCH 29.4, MCHC 34.1, RDW 12.9, Plt Count 197, MPV 8.7, Neut % (Auto) 64.8, Lymph % (Auto) 25.7, [place] % (Auto) 7.3, Eos % (Auto) 1.6, Baso % (Auto) 0.6, Neut # (Auto) 3.9, Lymph # (Auto) 1.5, [place] # (Auto) 0.4, Eos # (Auto) 0.1, Baso # (Auto) 0.0 08/02/20 06:15: Sodium 141, Potassium 4.4, Chloride 107, Carbon Dioxide 28, BUN 7 L, Creatinine 0.60 L D, Estimated Creat Clear 227, Estimated GFR 145, Est GFR ( Amer) 176 D, Glucose 146 H, Calcium 9.1 I & O for Last 24 hours: Intake & Output 07/30/20 07/31/20 08/01/20 08/02/20 11:59 11:59 11:59 11:59 Intake Total 3025 / 3025 Balance 3025 / 3025 Weight 230 lb 6 oz Microbiology Reports for the Last 24 Hours: Microbiology 08/01/20 14:00 Nasopharyngeal Coronavirus COVID-19 PCR - Final - *Routine HEENT Exam Head: Present: normocephalic Eye: Present: EOMI, PERRL ENT: Present: muc
[2020-08-13 18:07] LABS: Specimen Type NOT PROVIDED
[2020-08-13 18:08] LABS: Ca oxalate dihydrate 30%; Composition SEE BELOW:; Photo TO FOLLOW
== END 2020-08-02 10:18 | disposition home or self-care (01) ==
LOC: ER 13:50 → ICU 17:19
PROVIDERS: Admitting Provider Internal Medicine Adolescent Medicine; Emergency Provider Emergency Medicine; PCP Internal Medicine Adolescent Medicine; Visit Provider Internal Medicine Adolescent Medicine
DX: N13.2 Hydronephrosis with renal and ureteral calculous obstruction (principal); E11.9 Type 2 diabetes mellitus without complications; I10 Essential (primary) hypertension; I25.10 Atherosclerotic heart disease of native coronary artery without angina pectoris; I25.2 Old myocardial infarction; Z86.16 Personal history of COVID-19; Z79.84 Long term (current) use of oral hypoglycemic drugs; Z79.899 Other long term (current) drug therapy
CPT/HCPCS: 74176; 80048; 80053; 81001; 82370; 82962; 85025; 96365; 96367; 96375; 96376; 99284; G0378; J2405; U0003

== ENCOUNTER 2020-09-17 21:07 | Emergency (ER) | payer BC, SELFPAY ==
--- NOTE | 2020-09-17 20:56 | ECG_ITS ---
APPROVED REPORT Exam: Resting ECG HR:102 bpm ECG Measurements Heart Rate 102 AXES UT 138 P 62 QRSd 72 QRS -15 QT 350 T 60 QTc 456 Conclusion Sinus tachycardia Inferior infarct, age undetermined Abnormal ECG Electronically signed by : Mayank Brooks, 09/19/2020 07:28:26
[2020-09-17 21:12] VITALS: BMI 29.8
[2020-09-17 21:16] VITALS: BP 221/116; PULSE 109; RESP 22; TEMP 36.7; O2SAT 98; BMI 29.8
[2020-09-17 21:19] VITALS: BP 141/105; PULSE 107; RESP 18; O2SAT 97
[2020-09-17 21:23] LABS: Basophils # 0.1 K/mm3 (0-0.2); Basophils % 0.7 % (0.1-2.0); Eosinophils # 0.1 K/mm3 (0.0-0.4); Eosinophils % 1.5 % (0.1-12.0); Hematocrit 52.9 % (42.0-52.0); Hemoglobin 17.6 g/dL (14.1-18.0); Lymphocytes # 1.8 K/mm3 (0.7-4.5); Lymphocytes % 24.9 % (10-50); Mean Corpuscular HGB Conc 33.3 g/dL (31.8-35.4); Mean Corpuscular Hemoglobin 28.8 pg (27.0-31.2); Mean Corpuscular Volume 86.4 fl (80-94); Mean Platelet Volume 8.6 fl (7.4-10.4); Monocytes # 0.6 K/mm3 (0.1-1.0); Neutrophils # 4.6 K/mm3 (1.8-7.8); Neutrophils % 64.9 % (37.0-80.0); Platelet Count 186 K/mm3 (142-424); Red Blood Count 6.12 M/mm3 (4.60-6.20); Red Cell Distribution Width 13.8 % (11.5-17.5)
[2020-09-17 21:24] LABS: Chloride 102 mmol/L (98-107); Potassium 3.9 mmoL/L (3.5-5.1); Sodium 140 mmol/L (136-145)
[2020-09-17 21:27] LABS: Anion Gap 17.9 mEq/L (5-15); Blood Urea Nitrogen 11 mg/dl (9-20); Carbon Dioxide 24 mmol/L (22.0-30.0); Creatinine Clearance Estimated 186 mL/min (50-200); Estimated Glomerular Filt Rate 121 ml/min (>60); GFR (African American) 147 ML/MIN (>60); Glucose 181 mg/dl (74-100)
[2020-09-17 21:28] LABS: Calcium 10.4 mg/dl (8.4-10.2)
[2020-09-17 21:30] VITALS: BP 152/104; PULSE 98; RESP 15; O2SAT 95
[2020-09-17 21:33] LABS: C-Reactive Protein 0.8 mg/L (0-4)
[2020-09-17 21:33] LABS: POC Glucose,Bedside 173 (70-110)
[2020-09-17 21:41] LABS: Troponin I 0.04 ng/ml (0.00-0.034)
[2020-09-17 21:48] VITALS: BP 153/93; PULSE 107; RESP 15; O2SAT 97
[2020-09-17 21:51] LABS: Erythrocyte Sedimentation Rate 4 mm/hr (0-15)
[2020-09-17 21:53] LABS: Procalcitonin 0.078 ng/mL (0.0-2.0)
[2020-09-17 22:00] VITALS: BP 147/99; PULSE 105; RESP 13; O2SAT 96
--- NOTE | 2020-09-17 22:19 | HMH.EDCP ---
ED Disposition Clinical Impression: Hypertensive urgency, Anxiety Chest pain Qualifiers: Chest pain type: precordial pain Qualified Code(s): R07.2 - Precordial pain Disposition: Left Against Medical Advice Condition on Discharge: Good Instructions: DI for Chest Pain Additional Instructions: recheck if any problems tonight Referrals: Sheldon Nobles MD [Primary Care Provider] - - Critical Care Critical Care Time: No Attestation: On 09/17/20, the high probability of a clinically significant, sudden or life threatening deterioration of the following system(s) required my full and direct attention, intervention and personal management. The time I documented below is in addition to time spent performing reported procedures but includes the following listed in this critical care notation. Medical Decision Making - Medical Records Medical records reviewed: Yes: I reviewed the patient's medical records. - Markie Inquiry Pt receiving controlled substance: No Vital Signs: 09/17/20 21:16 09/17/20 21:19 09/17/20 21:30 Temperature 98.1 F Temperature Source Oral Pulse Rate 107 H 98 H Pulse Rate [Right Brachial] 109 H Respiratory Rate 22 18 15 Blood Pressure 141/105 H 152/104 H Blood Pressure [Right Arm] 221/116 H Blood Pressure Mean [Right Arm] 151 Blood Pressure Source [Right Arm] Automatic Cuff 02 Sat by Pulse Oximetry 98 97 95 Oxygen Delivery Method Room Air 09/17/20 21:48 09/17/20 22:00 Temperature Temperature Source Pulse Rate 107 H 105 H Pulse Rate [Right Brachial] Respiratory Rate 15 13 Blood Pressure 153/93 H 147/99 H Blood Pressure [Right Arm] Blood Pressure Mean [Right Arm] Blood Pressure Source [Right Arm] 02 Sat by Pulse Oximetry 97 96 Oxygen Delivery Method - Lab Data Lab results reviewed: Yes: I reviewed the patient's lab results. Lab Results 09/17/20 21:03: WBC 7.0, RBC 6.12, Hgb 17.6, Hct 52.9 H, MCV 86.4, MCH 28.8, MCHC 33.3, RDW 13.8, Plt Count 186, MPV 8.6, Neut % (Auto) 64.9, Lymph % (Auto) 24.9, [place] % (Auto) 8.0, Eos % (Auto) 1.5, Baso % (Auto) 0.7, Neut # (Auto) 4.6, Lymph # (Auto) 1.8, [place] # (Auto) 0.6, Eos # (Auto) 0.1, Baso # (Auto) 0.1, ESR 4 09/17/20 21:03: Sodium 140, Potassium 3.9, Chloride 102, Carbon Dioxide 24, Anion Gap 17.9 H, BUN 11, Creatinine 0.70, Estimated Creat Clear 186, Estimated GFR 121, Est GFR ( Amer) 147, Glucose 181 H, Calcium 10.4 H, Troponin I 0.04 H, C-Reactive Protein 0.8, Procalcitonin 0.078 09/17/20 21:26: POC Glucose 173 H Result diagrams: 09/17/20 21:03 09/17/20 21:03 Orders (Tests/Meds): ED MEDICATIONS Generic Name Dose Route Start Last Admin Trade Name Freq PRN Reason Stop Dose Admin Sodium Chloride 1,000 mls @ 999 mls/hr 09/17/20 21:15 09/17/20 21:36 Sod Chlor 0.9% 1000ml Bag IV 09/17/20 22:15 999 mls/hr .Q1H1M MIGUEL Administration Sodium Chloride 8 ml 09/17/20 21:37 Sodium Chloride 0.9% 10ml Vial IV 10/17/20 21:36 NEEDED PRN dilute pepcid Discontinued Medications Generic Name Dose Route Start Last Admin Trade Name Freq PRN Reason Stop Dose Admin Famotidine 20 mg 09/17/20 21:37 09/17/20 21:39 Famotidine 20mg/2ml Vial IV 09/17/20 21:38 20 mg ONCE ONE Administration Hydralazine HCl 10 mg 09/17/20 21:14 09/17/20 21:35 Hydralazine 20mg/Ml Vial IV 09/17/20 21:15 Not Given ONCE ONE Metoclopramide HCl 10 mg 09/17/20 21:37 09/17/20 21:40 Metoclopramide Hcl 10mg/2ml Vial IVP 09/17/20 21:38 10 mg ONCE ONE Administration Nitroglycerin 0.5 gm 09/17/20 21:37 09/17/20 21:41 Nitroglycerin 1 Gm Ointment TD 09/17/20 21:38 0.5 gm ONCE ONE Administration Nitroglycerin 0.4 mg 09/17/20 21:37 09/17/20 21:15 Nitroglycerin 0.4mg Sl Tablet SL 09/17/20 21:38 1 tab ONCE ONE Administration Ondansetron HCl 4 mg 09/17/20 21:14 09/17/20 21:36 Ondansetron 4mg/2ml Vial IV 09/17/20 21:15 4 mg ONCE ONE Administration
[2020-09-17 23:03] VITALS: BP 117/72; PULSE 96; RESP 17; TEMP 36.7; O2SAT 98
== END 2020-09-17 23:09 | disposition left against medical advice (07) ==
PROVIDERS: Emergency Provider Emergency Medicine; PCP Internal Medicine Adolescent Medicine
DX: I16.0 Hypertensive urgency (principal); R07.2 Precordial pain; F41.9 Anxiety disorder, unspecified; R73.9 Hyperglycemia, unspecified; Z95.1 Presence of aortocoronary bypass graft; E78.5 Hyperlipidemia, unspecified; I25.10 Atherosclerotic heart disease of native coronary artery without angina pectoris; I25.2 Old myocardial infarction; Z79.899 Other long term (current) drug therapy
CPT/HCPCS: 80048; 82962; 84145; 84484; 85025; 85651; 86140; 93005; 96365; 96375; 99282; J2405

== ENCOUNTER → 2020-11-27 10:04 | Outpatient (CLI) | payer BC, SELFPAY ==
[2020-11-27 10:57] LABS: Hemoglobin A1C 6.4 % (4.0-6.0)
[2020-11-27 11:23] LABS: Chloride 105 mmol/L (98-107); Sodium 143 mmol/L (136-145)
[2020-11-27 11:26] LABS: Alanine Aminotransferase 27 U/L (12-78); Albumin Level 4.5 g/dl (3.5-5.0); Albumin/Globulin Ratio 1.9 (1.1-1.8); Alkaline Phosphatase 61 U/L (38-126); Aspartate Amino Transferase 30 U/L (17-59); Bilirubin,Total 1.4 mg/dl (0.2-1.3); Blood Urea Nitrogen 8 mg/dl (9-20); Calcium 9.7 mg/dl (8.4-10.2); Carbon Dioxide 26 mmol/L (22.0-30.0); Chol/HDL Ratio 2.9 (1-3.5); Cholesterol 80 mg/dl (140-200); Estimated Glomerular Filt Rate 121 ml/min (>60); GFR (African American) 146 ML/MIN (>60); Globulin 2.4 g/dL (1.3-3.2); Glucose 141 mg/dl (74-100); HDL Cholesterol 28 mg/dl (40-60); Total Protein,Serum 6.9 g/dl (6.3-8.2); Triglycerides 96 mg/dl (30-150); VLDL Cholesterol 19 mg/dL (0-40)
[2020-11-27 11:42] LABS: Direct LDL Cholesterol 32.71 mg/dL (100-129)
== END ==
PROVIDERS: Visit Provider Internal Medicine Adolescent Medicine
DX: E11.9 Type 2 diabetes mellitus without complications (principal); Z79.84 Long term (current) use of oral hypoglycemic drugs
CPT/HCPCS: 36415; 80053; 80061; 83036

== ENCOUNTER → 2021-02-11 12:48 | Outpatient (CLI) | payer BC, SELFPAY ==
[2021-02-11 13:23] LABS: Hemoglobin A1C 6.2 % (4.0-6.0)
[2021-02-11 13:34] LABS: Chloride 103 mmol/L (98-107); Potassium 4.6 mmoL/L (3.5-5.1); Sodium 144 mmol/L (136-145)
[2021-02-11 13:36] LABS: Blood Urea Nitrogen 13 mg/dl (9-20); Estimated Glomerular Filt Rate 104 ml/min (>60); GFR (African American) 125 ML/MIN (>60)
[2021-02-11 13:37] LABS: Alanine Aminotransferase 39 U/L (12-78); Albumin Level 4.6 g/dl (3.5-5.0); Albumin/Globulin Ratio 1.9 (1.1-1.8); Alkaline Phosphatase 73 U/L (38-126); Anion Gap 16.6 mEq/L (5-15); Aspartate Amino Transferase 32 U/L (17-59); Bilirubin,Total 0.8 mg/dl (0.2-1.3); Carbon Dioxide 29 mmol/L (22.0-30.0); Cholesterol 131 mg/dl (140-200); Globulin 2.4 g/dL (1.3-3.2); Glucose 124 mg/dl (74-100); Magnesium 1.6 mg/dl (1.6-2.3); Triglycerides 175 mg/dl (30-150); VLDL Cholesterol 35 mg/dL (0-40)
[2021-02-11 13:38] LABS: Chol/HDL Ratio 3.3 (1-3.5); HDL Cholesterol 40 mg/dl (40-60)
[2021-02-11 13:48] LABS: Direct LDL Cholesterol 68.79 mg/dL (100-129)
== END ==
PROVIDERS: Visit Provider Internal Medicine Adolescent Medicine
DX: E11.9 Type 2 diabetes mellitus without complications (principal); E78.5 Hyperlipidemia, unspecified; I10 Essential (primary) hypertension; Z79.84 Long term (current) use of oral hypoglycemic drugs
CPT/HCPCS: 36415; 80053; 80061; 83036; 83735

== ENCOUNTER → 2022-05-16 13:57 | Outpatient (CLI) | payer BC, SELFPAY ==
[2022-05-16 14:40] LABS: Basophils # 0.1 K/mm3 (0-0.2); Basophils % 0.9 % (0.1-2.0); Eosinophils # 0.1 K/mm3 (0.0-0.4); Eosinophils % 1.8 % (0.1-12.0); Hematocrit 52.2 % (42.0-52.0); Hemoglobin 17.8 g/dL (14.1-18.0); Lymphocytes # 2.1 K/mm3 (0.7-4.5); Lymphocytes % 25.9 % (10-50); Mean Corpuscular Hemoglobin 30.3 pg (27.0-31.2); Mean Platelet Volume 9.3 fl (7.4-10.4); Monocytes # 0.5 K/mm3 (0.1-1.0); Monocytes % 6.3 % (1.7-9.3); Neutrophils # 5.3 K/mm3 (1.8-7.8); Neutrophils % 65.2 % (37.0-80.0); Platelet Count 224 K/mm3 (142-424); Red Blood Count 5.87 M/mm3 (4.60-6.20); Red Cell Distribution Width 13.8 % (11.5-17.5); White Blood Count 8.1 K/mm3 (4.8-10.8)
[2022-05-16 15:29] LABS: Alanine Aminotransferase 39 U/L (12-78); Albumin Level 4.8 g/dl (3.5-5.0); Albumin/Globulin Ratio 2.2 (1.1-1.8); Alkaline Phosphatase 86 U/L (38-126); Anion Gap 13.7 mEq/L (5-15); Aspartate Amino Transferase 40 U/L (17-59); Bilirubin,Total 0.8 mg/dl (0.2-1.3); Blood Urea Nitrogen 14 mg/dl (9-20); Calcium 10.2 mg/dl (8.4-10.2); Carbon Dioxide 27 mmol/L (22.0-30.0); Chloride 106 mmol/L (98-107); Cholesterol 121 mg/dl (140-200); Estimated Glomerular Filt Rate 103 ml/min (>60); GFR (African American) 125 ML/MIN (>60); Globulin 2.2 g/dL (1.3-3.2); Glucose 142 mg/dl (74-100); HDL Cholesterol 30 mg/dl (40-60); Potassium 4.7 mmoL/L (3.5-5.1); Sodium 142 mmol/L (136-145); Triglycerides 185 mg/dl (30-150); VLDL Cholesterol 37 mg/dL (0-40)
[2022-05-16 15:47] LABS: Free Thyroxine Index 2.6 ug/dL (5.93-13.13); T4 (Thyroxine) 8.2 ug/dl (5.53-11.0); Triiodothryronine (T3) Uptake 32 % (23.5-40.5)
[2022-05-16 16:00] LABS: Thyroid Stimulating Hormone 0.27 uIU/mL (0.465-4.68)
[2022-05-16 16:18] LABS: Vitamin B12 719 pg/mL (239-931)
[2022-05-18 15:10] LABS: Treponema pallidum Ab (FTA-ABS Non Reactive (Non Reactive)
== END ==
PROVIDERS: PCP Internal Medicine Adolescent Medicine; Visit Provider Internal Medicine Adolescent Medicine
DX: I25.10 Atherosclerotic heart disease of native coronary artery without angina pectoris (principal); E11.9 Type 2 diabetes mellitus without complications; G60.9 Hereditary and idiopathic neuropathy, unspecified; Z79.84 Long term (current) use of oral hypoglycemic drugs
CPT/HCPCS: 36415; 80053; 80061; 82607; 84436; 84443; 84479; 85025; 86780

== ENCOUNTER 2023-07-09 08:13 | Outpatient (CLI) | payer OTHER, SELFPAY ==
[2023-07-09 08:50] LABS: Blood Urea Nitrogen 15 mg/dl (9-20); Estimated Glomerular Filt Rate 103 ml/min (>60); GFR (African American) 124 ML/MIN (>60)
--- NOTE | 2023-07-09 08:56 | CT_ITS ---
FINAL REPORT TECHNIQUE: Multiple axial CT sections were performed from the foramen magnum to the vertex. Coronal and sagittal reformatted images were also obtained. Precontrast and postcontrast injection images were obtained. This study was performed with technique to keep radiation doses as low as reasonably achievable, (ALARA). Individualized dose reduction techniques using automated exposure control or adjustment of mA and/or kV according to the patient size were employed. CLINICAL HISTORY: IDIOPATHIC NEUROPATHY, HX OF HEADACHES COMPARISON: None FINDINGS: CT HEAD WITH AND WITHOUT CONTRAST: The ventricles are normal in size and configuration. No extra-axial fluid collections are noted. No focal areas of abnormal density or enhancement are seen. The bony calvarium is unremarkable. No focal enhancement is identified after contrast administration. IMPRESSION: Unremarkable CT of the head without and with contrast. Reviewed, Interpreted and Dictated by Buddy Young III, MD Transcribed by Marce Woodard Authenticated and [facility]
[2023-07-09] MEDS: IOPAMIDOL-370 (76%);100ML BOTTLE 100 ML IV (09:41)
[2023-07-09] MEDS: SODIUM CHLORIDE 0.9% 10ML SYR (RAD ONLY) 10 ML IV (09:41)
== END 2023-07-09 23:59 ==
LOC: RAD 08:14
PROVIDERS: PCP Internal Medicine Adolescent Medicine; Visit Provider Internal Medicine Adolescent Medicine
DX: G60.9 Hereditary and idiopathic neuropathy, unspecified (principal); R51.9 Headache, unspecified
CPT/HCPCS: 36415; 70470; 82565; 84520; 95819; Q9967

== ENCOUNTER 2024-05-16 17:05 | Emergency (ER) | payer OTHER, SELFPAY ==
[2024-05-16] VITALS (9 sets, daily range): BP systolic 173–220; BP diastolic 108–135; PULSE 86–97; RESP 12–21; TEMP 36.7–36.8; O2SAT 93–97; BMI 29.8
--- NOTE | 2024-05-16 17:04 | ECG_ITS ---
APPROVED REPORT Exam: Resting ECG HR:99 bpm ECG Measurements Heart Rate 99 AXES IA 160 P 66 QRSd 86 QRS 4 QT 338 T 79 QTc 394 Conclusion SINUS RHYTHM NORMAL ECG UNCONFIRMED REPORT Electronically signed by : Sheldon Bearden, 05/16/2024 21:55:59
--- NOTE | 2024-05-16 17:07 | CT_ITS ---
PROCEDURE INFORMATION: Exam: CTA Neck With Contrast Exam date and time: 05/16/2024 5:14 PM Age: 48 years old Clinical indication: Stroke-like symptoms; Altered mental status/memory loss; Additional info: Stroke alert TECHNIQUE: Imaging protocol: Computed tomographic angiography of the neck with contrast. Exam focused on the cervical segments of the vasculature. 3D rendering (Not supervised by radiologist): MIP and/or 3D reconstructed images were created by the technologist. Radiation optimization: All CT scans at this facility use at least one of these dose optimization techniques: automated exposure control; mA and/or kV adjustment per patient size (includes targeted exams where dose is matched to clinical indication); or iterative reconstruction. Contrast material: ISOVUE 370; Contrast volume: 80 ml; Contrast route: INTRAVENOUS (IV); COMPARISON: CT ANGIO HEAD WITH W/O 05/16/2024 5:14 PM FINDINGS: Right common carotid artery: No stenosis. No dissection or occlusion. Right internal carotid artery: There is calcified plaque in the proximal right internal carotid artery. No stenosis. Right external carotid artery: No occlusion or stenosis of the origin. Left common carotid artery: No stenosis. No dissection or occlusion. Left internal carotid artery: There is calcified plaque in the proximal left internal carotid artery. No stenosis. Left external carotid artery: No occlusion or stenosis of the origin. Right vertebral artery: No stenosis. No dissection or occlusion. Left vertebral artery: There is moderate to severe stenosis at the origin of the left vertebral artery. No stenosis of the V2 or V3 segments. Soft tissues: Normal. No significant soft tissue swelling. Bones/joints: No acute fracture. IMPRESSION: 1. No carotid artery stenosis. 2. Moderate to severe stenosis at the origin of the left vertebral artery. No right vertebral artery stenosis. REFERENCES: NASCET CRITERIA. The degree of stenosis in the cervical segment of the internal carotid artery is based on NASCET criteria. Normal is no stenosis. Mild is less than 50% stenosis. Moderate is 50-69% stenosis. Severe is 70% to 99% stenosis. Total occlusion is no detectable patent lumen.
--- NOTE | 2024-05-16 17:07 | CT_ITS ---
PROCEDURE INFORMATION: Exam: CT Head Without Contrast Exam date and time: 05/16/2024 5:14 PM Age: 48 years old Clinical indication: Stroke-like symptoms; Altered mental status/memory loss; Additional info: Stroke alert TECHNIQUE: Imaging protocol: Computed tomography of the head without contrast. Radiation optimization: All CT scans at this facility use at least one of these dose optimization techniques: automated exposure control; mA and/or kV adjustment per patient size (includes targeted exams where dose is matched to clinical indication); or iterative reconstruction. Other technique: STROKE PROTOCOL was implemented. COMPARISON: CT ANGIO HEAD WITH W/O 05/16/2024 5:14 PM FINDINGS: Brain: There is no evidence of infarct, harper-white matter differentiation is preserved. There is no hemorrhage or extra-axial collection. There is no mass. Cerebral ventricles: There is no hydrocephalus. Paranasal sinuses: Visualized sinuses are unremarkable. No fluid levels. Mastoid air cells: Visualized mastoid air cells are well aerated. Bones: Unremarkable. No acute fracture. Soft tissues: Unremarkable. IMPRESSION: No intracranial lesion or injury ASSESSMENT: ASPECTS ([place] Stroke Program Early CT Score) is 10.
--- NOTE | 2024-05-16 17:07 | CT_ITS ---
PROCEDURE INFORMATION: Exam: CTA Head With Contrast, Arteriography Exam date and time: 05/16/2024 5:14 PM Age: 48 years old Clinical indication: Stroke-like symptoms; Altered mental status/memory loss; Additional info: Stroke alert TECHNIQUE: Imaging protocol: Computed tomographic angiography of the head with contrast. Exam focused on the arteries. 3D rendering (Not supervised by radiologist): MIP and/or 3D reconstructed images were created by the technologist. Radiation optimization: All CT scans at this facility use at least one of these dose optimization techniques: automated exposure control; mA and/or kV adjustment per patient size (includes targeted exams where dose is matched to clinical indication); or iterative reconstruction. Contrast material: ISOVUE 370; Contrast volume: 80 ml; Contrast route: INTRAVENOUS (IV); COMPARISON: CT HEAD/BRAIN WO CON 05/16/2024 5:14 PM FINDINGS: ANTERIOR CIRCULATION: Right internal carotid artery: There is calcified plaque in the right carotid siphon. No stenosis. No aneurysm. Right middle cerebral artery: No occlusion or significant stenosis. No aneurysm. Right anterior cerebral artery: No occlusion or significant stenosis. No aneurysm. Left internal carotid artery: Is calcified plaque in the left carotid siphon. No stenosis. No aneurysm. Left middle cerebral artery: No occlusion or significant stenosis. No aneurysm. Left anterior cerebral artery: No occlusion or significant stenosis. No aneurysm. POSTERIOR CIRCULATION: Right vertebral artery: No occlusion or significant stenosis. No aneurysm. Left vertebral artery: There is calcified plaque in the V4 segment of the left vertebral artery. No stenosis. No aneurysm. Basilar artery: No occlusion or significant stenosis. No aneurysm. Right posterior cerebral artery: There is origin of the right posterior cerebral artery. No stenosis. No aneurysm. Left posterior cerebral artery: No occlusion or significant stenosis. No aneurysm. Brain: No definite mass, mass effect, or midline shift. See head CT Cerebral ventricles: No ventriculomegaly. Bones/joints: Unremarkable. No acute fracture. Soft tissues: Unremarkable. IMPRESSION: No intracranial stenosis or occlusion
--- NOTE | 2024-05-16 17:10 | PC.NURSE ---
PT TO CT
[2024-05-16] MEDS: IOPAMIDOL-370 (76%);100ML BOTTLE 80 ML IV (17:18)
[2024-05-16] MEDS: SODIUM CHLORIDE 0.9% 10ML SYR (RAD ONLY) 10 ML IV (17:18)
[2024-05-16] MEDS: 0.9 % SODIUM CHLORIDE 50 ML VIAL IV (17:18)
[2024-05-16 17:20] LABS: Albumin Level 4.8 g/dl (3.5-5.0); Chloride 103 mmol/L (98-107)
--- NOTE | 2024-05-16 17:20 | PC.NURSE ---
PT RETURNED FROM CT
[2024-05-16 17:21] LABS: Sodium 139 mmol/L (136-145)
[2024-05-16 17:23] LABS: Basophils # 0.1 K/mm3 (0-0.2); Basophils % 0.7 % (0.1-2.0); Blood Urea Nitrogen 18 mg/dl (9-20); Eosinophils # 0.1 K/mm3 (0.0-0.4); Eosinophils % 1.5 % (0.1-12.0); Estimated Glomerular Filt Rate 119 ml/min (>60); GFR (African American) 144 ML/MIN (>60); Hematocrit 52.9 % (42.0-52.0); Lymphocytes # 2.6 K/mm3 (0.7-4.5); Lymphocytes % 32.4 % (10-50); Mean Corpuscular HGB Conc 35.5 g/dL (31.8-35.4); Mean Corpuscular Volume 84.5 fl (80-94); Mean Platelet Volume 8.8 fl (7.4-10.4); Monocytes # 0.4 K/mm3 (0.1-1.0); Monocytes % 5.3 % (1.7-9.3); Neutrophils # 4.7 K/mm3 (1.8-7.8); Neutrophils % 60.1 % (37.0-80.0); Platelet Count 208 K/mm3 (142-424); Red Blood Count 6.27 M/mm3 (4.60-6.20); Red Cell Distribution Width 13.7 % (11.5-17.5); White Blood Count 7.9 K/mm3 (4.8-10.8)
[2024-05-16 17:24] LABS: Activated Partial Thrombo Time 24.8 seconds (22.8-30.6); Alanine Aminotransferase 50 U/L (12-78); Albumin/Globulin Ratio 1.7 (1.1-1.8); Alkaline Phosphatase 102 U/L (38-126); Aspartate Amino Transferase 47 U/L (17-59); Bilirubin,Total 0.8 mg/dl (0.2-1.3); Calcium 9.8 mg/dl (8.4-10.2); Carbon Dioxide 26 mmol/L (22.0-30.0); Globulin 2.9 g/dL (1.3-3.2); Glucose 271 mg/dl (74-100); INR 0.95 (0.9-1.1); Prothrombin Time 10.7 seconds (10.1-12.5); Total Protein,Serum 7.7 g/dl (6.3-8.2)
--- NOTE | 2024-05-16 17:26 | ED_ITS ---
<Statement entered by Jeanmarie Bearden MD - 05/16/24 21:54> I was consulted by the [facility], and we discussed the complexity of the problems being addressed. I approved the treatment and management plan for this patient's care in the emergency department, thus performing a substantive portion of the medical decision making. Jeanmarie Bearden MD, MECHELLE, FACEP Discharge Plan Disposition Patient Disposition: Xfer Short-Term Hosp Condition: Critical Prescriptions Prescriptions: No Action atorvastatin 80 Tablet 80 mg PO DAILY Patient Comments: trazodone 50 Tablet 50 mg PO DAILY Patient Comments: lisinopril 20 Tablet 20 mg PO DAILY Patient Comments: metformin 1,000 Tablet 1,000 mg PO BID Patient Comments: aspirin 81 MG Tab.Chew 81 mg PO DAILY metoprolol tartrate 25 Tablet 75 mg PO BID Patient Comments: celecoxib 100 MG capsule 100 mg PO BID pregabalin 75 MG capsule 75 mg PO BID Clinical Impressions Clinical Impression: Stroke Qualifiers: CVA mechanism: stenosis Precerebral and cerebral artery: vertebral artery L aterality of affected vessel: left Qualified Code(s): I63.212 - Cerebral infarction due to unspecified occlusion or stenosis of left vertebral artery Print Language Print Language: Lithuanian Discharge ED Provider: Jeanmarie Bearden General Adult HPI General Chief complaint: Neuro Symptoms/Deficit Stated complaint: stroke type symptoms Time Seen by Provider: 05/16/24 17:26 History of Present Illness HPI narrative: Patient presents for evaluation of acute dysarthria and ataxia. Patient was driving home from work and began having neurologic symptoms. He came to the emergency department for evaluation. On arrival his NIH stroke score is 6 with slurred speech past-pointing and inability to utilize his right upper extremity and to a lesser extent but still present is right lower extremity. He has a history of type 2 diabetes mellitus hypertension hyperlipidemia. He also has a history of coronary artery disease status post coronary artery bypass graft x 5 vessels. Related Data Home Medications ?Medication ?Instructions ?Recorded ?Confirmed aspirin 81 mg chewable tablet 81 mg PO DAILY Blood thinner 08/20/17 09/17/20 atorvastatin 80 mg tablet 80 mg PO DAILY High cholesterol 08/20/17 09/17/20 lisinopril 20 mg tablet 20 mg PO DAILY High cholesterol 08/20/17 09/17/20 metformin 1,000 mg tablet 1,000 mg PO BID Diabetes 08/20/17 09/17/20 metoprolol tartrate 25 mg tablet 75 mg PO BID High blood pressure 08/20/17 09/17/20 trazodone 50 mg tablet 50 mg PO DAILY Insomnia 08/20/17 09/17/20 celecoxib 100 mg capsule 100 mg PO BID Pain 08/01/20 09/17/20 pregabalin 75 mg capsule 75 mg PO BID PAIN 08/01/20 09/17/20 Allergies Allergy/AdvReac Type Severity Reaction Status Date / Time aloe vera (ALOE VERA) Allergy Unknown Verified 08/20/17 05:55 [facility] Disclaimer: The information contained in this section may have been updated after the patient was seen, as this information can be updated by other users. Social History Smoking Status: Unknown if ever smoked alcohol intake: current alcohol intake frequency: holidays/special occasions only current occupational status: employed Travel in the last 8 weeks: None household members: spouse housing: house current occupation: supplies current occupational exposures/hazards: No caffeine: Yes Have you lived/traveled outside [place] in past 30 days?: No Contact w/someone who lives/traveled outside [place] past 30 days?: No Exposure to someone with infectious disease in past 14 days?: No Do you have a fever (greater than 100.4 F or 38 C)?: No Have you tested positive for COVID-19: No Exposed to someone with COVID-19 in past 14 days?: No Do you have a sore throat?: No Do you have a cough?: No Do you have any weakness?: No Do you have any diarrhea?: No Are you experiencing any unusual bleeding?: No Do you have any muscle aches/pain?: No Do you have any abdominal pain?: No Are you experiencing loss of taste or smell?: No Other Medical History Have you received the Flu Vaccine for this season: Yes Have you received the Pneumonia Vaccine: No ROS Obtained: Yes Systems reviewed as appropriate & no additional complaints except as documented Physical Exam General General appearance: alert and in no apparent distress Respiratory Respiratory exam: Present normal lung sounds bilaterally Cardiovascular Cardiovascular exam: Present regular rate Neurological Exam Neurological exam: Present alert and oriented X3 Medical Decision Making Medical Records Medical records reviewed: Yes I reviewed the patient's medical records. Screening: Per USPSTF and CDC recommendations, given the prevalence of disease in our region, it is our hospital?s policy to screen for HIV and viral Hepatitis for all patients aged 18 and over and those with ongoing risk factors. Markie Inquiry Pt receiving controlled substance: No Vital Signs: 05/16/24 17:27 05/16/24 17:30 05/16/24 18:15 Temperature 98.2 F Temperature Source Oral Pulse Rate 94 H Pulse Rate [Right Radial] 97 H Respiratory Rate 20 21 Blood Pressure 179/116 H 193/123 H Blood Pressure [Right Arm] 220/135 H Blood Pressure Mean [Right Arm] 163 02 Sat by Pulse Oximetry 93 L 97 Oxygen Delivery Method Room Air Lab Data Lab results reviewed: Yes I reviewed the patient's lab results. Lab Results 05/16/24 17:06: WBC 7.9, RBC 6.27 H, Hgb 18.9 H, Hct 52.9 H, MCV 84.5, MCH 30.0, MCHC 35.5 H, RDW 13.7, Plt Count 208, MPV 8.8, Neut % (Auto) 60.1, Lymph % (Auto) 32.4, [place] % (Auto) 5.3, Eos % (Auto) 1.5, Baso % (Auto) 0.7, Neut # (Auto) 4.7, Lymph # (Auto) 2.6, [place] # (Auto) 0.4, Eos # (Auto) 0.1, Baso # (Auto) 0.1, PT 10.7, INR 0.95, APTT 24.8, Sodium 139, Potassium 4.0, Chloride 103, Carbon Dioxide 26, Anion Gap 14.0, BUN 18, Creatinine 0.70, Estimated GFR 119, Est GFR ( Amer) 144, Glucose 271 H, Calcium 9.8, Total Bilirubin 0.8, AST 47, ALT 50, Alkaline Phosphatase 102, Total Protein 7.7, Albumin 4.8, Globulin 2.9, Albumin/Globulin Ratio 1.7 05/16/24 17:06 05/16/24 17:06 Orders (Tests/Meds): ED MEDICATIONS Generic Name Dose Route Start Last Admin Trade Name Freq PRN Reason Stop Dose Admin Nicardipine HCl 25 mg/ Sodium 250 mls @ 50 mls/hr 05/16/24 18:10 Chloride IV 06/15/24 18:09 .Q5H MIGUEL Protocol 5 MG/HR Sodium Chloride 1,000 mls @ 999 mls/hr 05/16/24 18:17 05/16/24 18:18 Sod Chlor 0.9% 1000ml Bag IV 05/16/24 19:17 999 mls/hr .Q1H1M ONE Administration Discontinued Medications Generic Name Dose Route Start Last Admin Trade Name Wild PRN Reason Stop Dose Admin Iopamidol 80 ml 05/16/24 17:17 05/16/24 17:18 Iopamidol-370 (76%);100ml Bottle IV 05/16/24 17:18 80 ml ONCE ONE Administration Labetalol HCl 10 mg 05/16/24 18:08 05/16/24 18:15 Labetalol 5mg/Ml 20ml Mdv IV 05/16/24 18:09 10 mg ONCE ONE Administration Ondansetron HCl 4 mg 05/16/24 17:34 05/16/24 17:42 Ondansetron 4mg/2ml Vial IV 05/16/24 17:35 4 mg ONCE ONE Administration Sodium Chloride 10 ml 05/16/24 17:17 05/16/24 17:18 Sodium Chloride 0.9% 10ml Syr (Rad Only) IV 05/16/24 17:18 10 ml ONCE ONE Administration Sodium Chloride 50 ml 05/16/24 17:17 05/16/24 17:18 0.9 % Sodium Chloride 50 Ml Vial IV 05/16/24 17:18 50 ml ONCE ONE Administration Tenecteplase 25 mg 05/16/24 18:15 Tenecteplase 50mg Vial IV 05/16/24 18:16 ONCE ONE Tenecteplase 0 mg 05/16/24 18:11 Tenecteplase 50mg Vial IV 05/16/24 18:12 CONSULT PHARMACY ONE ORDERS Category Date Time Status CT angio head Stat Cat Scan 05/16/24 17:[address] angio neck Stat Cat Scan 05/16/24 17:[address] head/brain wo con Stat Cat Scan 05/16/24 17:07 Completed Complete Blood Count Auto Diff Stat Lab 05/16/24 17:06 Completed Comprehensive Metabolic Panel Stat Lab 05/16/24 17:06 Completed HIV (1&2) Antibody Rapid Stat Lab 05/16/24 17:06 Received Hep C Ab with Reflex to RNA Stat Lab 05/16/24 17:06 Received PT/PTT Stat Lab 05/16/24 17:06 Completed Medical Decision Narrative: In summary patient is a 48-year-old male who presents to the emergency department for evaluation of cute neurologic symptoms worrisome for stroke. Patient is significantly hypertensive on arrival with a systolic blood pressure of 120 diastolic 135, heart rate 97 breathing 20 times a minute satting at 93% on room air upon arrival, afebrile. Physical exam shows right sided ataxia with slurred speech although patient is awake alert and oriented to person place and circumstance currently, and patient retains capacity for decision making. Differential diagnosis includes hemorrhagic versus embolic cerebrovascular event. Initial workup will be conducted with stroke alert. Initial interventions include labetalol to get his blood pressure under 180 and possible Cardene drip. 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 Upon repeat evaluation patient still remains with NIH stroke score of 6. Given this I had interactive discussion with [facility] transfer center Dr. Mercado and neurology attending Dr. Matos outpatient management and TNK is recommended and they have accepted transfer to the [facility]. Critical Care Critical Care Time Critical Care Time: Yes Attestation: On 05/16/24, the high probability of a clinically significant, sudden or life threatening deterioration of the following systems: Neurologic, cardiovascular; required my full and direct attention, intervention and personal management. The time I documented below is in addition to time spent performing reported procedures but includes the following listed in this critical care notation. Total Time Total Critical Care Time: 45
[2024-05-16 17:38] LABS: Hemoglobin 18.9 g/dL (14.1-18.0)
[2024-05-16] MEDS: ONDANSETRON 4MG/2ML VIAL 4 MG IV (17:42)
--- NOTE | 2024-05-16 17:53 | PC.NURSE ---
[facility] NOTIFIED FOR STROKE CONSULT
--- NOTE | 2024-05-16 18:01 | PC.NURSE ---
DR LOPEZ SPEAKING WITH DR LEOS AT [facility]
--- NOTE | 2024-05-16 18:12 | PC.NURSE ---
I spoke with [employer] for a weather check. They will call back with an answer after contacting [place] [phone].
[2024-05-16] MEDS: LABETALOL 5MG/ML 20ML MDV 10 MG IV (18:15)
[2024-05-16] MEDS: 0.9 % SODIUM CHLORIDE 1000ML 1,000 ML 999 ML IV (18:18)
--- NOTE | 2024-05-16 18:20 | PC.NURSE ---
DR LOPEZ AT BEDSIDE TO UPDATE PT AND FAMILY ON POC. DISCUSSED TNK. PT AND FAMILY AGREE
[2024-05-16] MEDS: TENECTEPLASE 50MG VIAL 25 MG IV (18:27)
--- NOTE | 2024-05-16 18:27 | PC.NURSE ---
TNK GIVEN AT THIS TIME
--- NOTE | 2024-05-16 18:55 | PC.NURSE ---
REPORT GIVEN TO YOHANNESODS
[2024-05-16] MEDS: NICARDIPINE HCL 25 MG in 0.9 % SODIUM CHLORIDE 240 ML 50 MG IV (18:56)
--- NOTE | 2024-05-16 19:17 | PC.NURSE ---
report given to yvonne wells at ed
[2024-05-17 14:56] LABS: HIV Combo NEGATIVE (Negative)
[2024-05-18 08:17] LABS: HCV Ab Non Reactive (Non Reactive)
== END 2024-05-16 19:25 | disposition short-term general hospital (02) ==
PROVIDERS: Physician Assistant; Emergency Provider Student in an Organized Health Care Education/Training Program; PCP Internal Medicine Adolescent Medicine
DX: I63.212 Cerebral infarction due to unspecified occlusion or stenosis of left vertebral artery (principal); R47.1 Dysarthria and anarthria; R27.0 Ataxia, unspecified; R47.81 Slurred speech; I10 Essential (primary) hypertension
CPT/HCPCS: 70450; 70496; 70498; 80053; 85025; 85610; 85730; 86803; 87389; 93005; 96361; 96374; 96375; 99291; J1920; J2404; J2405; J3101; J7030; Q9967